=== PATIENT | male | born 1960 | race Caucasian/White ===

== ENCOUNTER → 2016-11-02 | Outpatient (CLI) | payer MEDICARE, MEDICAID ==
[~2016-11-02] MED LIST: ABILIFY2 MG PO; ALLEGRA 180MG180 MG PO; AMOXICILLIN875 MG PO; ASPIRIN E.C. 8181 MG PO; ATIVAN 0.50.5 MG/TAB PO; CLINDAMYCIN HC300 MG PO; COUMADIN 5MG5 MG/TAB PO; CRESTOR20 MG PO; FLOMAX 0.40.4 MG/CAP PO; LEXAPRO 5MG5 MG PO; LOPRESSOR100 MG PO; NAPROSYN375 MG PO; NAPROXEN 3375 MG/TAB PO; NITROSTAT0.4 MG/TAB SL; NORCO 325 MG-7.1 TAB PO; NORVASC 10MG10 MG PO; NORVASC 5MG5 MG/TAB PO; PLAVIX 75MG TAB75 MG PO; PRINIVIL20 MG PO; PRISTIQ 50 MG T50 MG PO; PRISTIQ100 MG PO; PROMETHAZINE V473 M2 PO; SILVADENE 400G400 GM TP; STOOL SOFTENER100 MG PO; TOPROL XL100 MG PO; TYLENOL 325MG325 M1 PO; TYLENOL EXTRA500 M1 PO; XANAX 1MG1 MG PO; ZESTRIL 20MG TA20 MG PO; ZESTRIL40 MG PO
== END ==
LOC: BHSO 13:46
DX: F31.81 Bipolar II disorder (principal)

== ENCOUNTER → 2016-11-15 | Outpatient (CLI) | payer MEDICARE, MEDICAID | LOC: COL.RAD 13:59 | DX: I71.9 Aortic aneurysm of unspecified site, without rupture (principal); Z53.09 Procedure and treatment not carried out because of other contraindication | CPT/HCPCS: Q9967 ==

== ENCOUNTER → 2016-11-16 | Outpatient (CLI) | payer MEDICARE, MEDICAID | LOC: COL.RAD 12:58 | DX: I71.4 Abdominal aortic aneurysm, without rupture (principal) | CPT/HCPCS: Q9967 ==

== ENCOUNTER 2016-12-26 13:14 | Emergency (ER) | payer MEDICARE, MEDICAID ==
[~2016-12-26] VITALS: Ht 188 cm; Wt 116.8 kg
[2016-12-26 13:47] LABS: BASO # 0.1 (0.0-0.2); BASO % 0.7 % (0.0-2.0); EOS # 0.3 (0.0-0.7); EOS % 3.8 % (0-4.0); GRAN # 4.9 (1.4-6.5); GRAN % 64.9 % (42.2-75.2); HEMATOCRIT 50.4 % (42.0-52.0); HEMOGLOBIN 16.8 g/dl (13.5-18.0); LYMPH # 1.6 (1.2-3.4); LYMPH % 21.2 % (20.0-51.0); MEAN CELL VOLUME 93 fl (80.0-100.0); MEAN CORPUSCULAR HEMOGLOBIN 31 pg (27.0-31.0); MEAN CORPUSCULAR HGB CONC 33 g/dl (33.0-37.0); MEAN PLATELET VOLUME 10.3 fl (7.4-10.4); MONO # 0.7 (0.1-0.6); MONO % 8.7 % (1.7-9.3); PLATELET COUNT 157 K/mm3 (130-400); REDCELL DISTRIBUTION WIDTH-CV 12.9 % (11.5-14.5); WHITE BLOOD COUNT 7.5 K/mm3 (4.8-10.8)
[2016-12-26 14:07] LABS: ANION GAP 10 mmol/L (7-16); BLOOD UREA NITROGEN 18 mg/dL (9-20); CALCIUM 9.3 mg/dL (8.4-10.2); CARBON DIOXIDE 24 mmol/L (22-30); CHLORIDE 104 mmol/L (98-107); CREATININE, serum 1.38 mg/dL (0.66-1.25); GLUCOSE 96 mg/dL (74-106); POTASSIUM 4.2 mmol/L (3.4-5.0); SODIUM 138 mmol/L (137-145)
[2016-12-26 14:08] LABS: ERYTHROCYTE SEDIMENTATION RATE 4 mm/hr (0-30)
[2016-12-26 14:10] LABS: C-REACTIVE PROTEIN < 0.5 mg/dL (0.0-0.9)
[2016-12-26 14:16] LABS: TROPONIN-I < 0.012 ng/mL (0.000-0.034)
[2016-12-26 14:45] LABS: INR 2.1 (0.8-3.0); PROTHROMBIN TIME 23.6 SECONDS (9.7-12.8)
[2016-12-26 14:54] VITALS: TEMP 98.1
[2016-12-26 17:47] VITALS: BP 125/65; PULSE 63
== END 2016-12-26 17:55 | disposition home or self-care (01) ==
LOC: COL.ER 13:14
PROVIDERS: Emergency Medicine
DX: I12.9 Hypertensive chronic kidney disease with stage 1 through stage 4 chronic kidney disease, or unspecified chronic kidney disease (principal); N18.9 Chronic kidney disease, unspecified; R42 Dizziness and giddiness; F32.9 Major depressive disorder, single episode, unspecified; F41.9 Anxiety disorder, unspecified; Z95.5 Presence of coronary angioplasty implant and graft; F17.210 Nicotine dependence, cigarettes, uncomplicated; Z79.02 Long term (current) use of antithrombotics/antiplatelets; Z86.718 Personal history of other venous thrombosis and embolism
CPT/HCPCS: J7030

== ENCOUNTER → 2017-05-05 | Outpatient (CLI) | payer MEDICARE, MEDICAID | LOC: BHSO 13:22 | DX: F06.32 Mood disorder due to known physiological condition with major depressive-like episode (principal) ==

== ENCOUNTER → 2017-11-01 | Outpatient (CLI) | payer MEDICARE, MEDICAID | LOC: BHSO 14:11 | DX: F31.81 Bipolar II disorder (principal) | CPT/HCPCS: G0463 ==

== ENCOUNTER → 2018-07-26 | Outpatient (CLI) | payer MEDICARE, MEDICAID | LOC: COL.RAD 16:41 | DX: S52.135A Nondisplaced fracture of neck of left radius, initial encounter for closed fracture (principal); D16.02 Benign neoplasm of scapula and long bones of left upper limb; Z87.81 Personal history of (healed) traumatic fracture ==

== ENCOUNTER → 2018-08-20 | Outpatient (CLI) | payer MEDICARE, MEDICAID | LOC: BHSO 11:11 | DX: F06.32 Mood disorder due to known physiological condition with major depressive-like episode (principal) | CPT/HCPCS: G0463 ==

== ENCOUNTER → 2018-09-11 | Outpatient (CLI) | payer MEDICARE, MEDICAID ==
[2018-09-11 14:46] LABS: BASO % 0.5 % (0.0-2.0); EOS # 0.2 (0.0-0.7); EOS % 3.1 % (0-4.0); GRAN # 3.2 (1.4-6.5); GRAN % 50.3 % (42.2-75.2); HEMATOCRIT 50.7 % (42.0-52.0); HEMOGLOBIN 16.5 g/dl (13.5-18.0); LYMPH # 2.3 (1.2-3.4); LYMPH % 35.6 % (20.0-51.0); MEAN CELL VOLUME 95 fl (80.0-100.0); MEAN CORPUSCULAR HEMOGLOBIN 31 pg (27.0-31.0); MEAN CORPUSCULAR HGB CONC 33 g/dl (33.0-37.0); MEAN PLATELET VOLUME 10.2 fl (7.4-10.4); MONO # 0.6 (0.1-0.6); MONO % 9.7 % (1.7-9.3); PLATELET COUNT 176 K/mm3 (130-400); RED BLOOD COUNT 5.36 M/mm3 (4.20-5.60); REDCELL DISTRIBUTION WIDTH-CV 13.3 % (11.5-14.5)
[2018-09-11 14:54] LABS: ALANINE AMINOTRANSFERASE 20 U/L (21-72); ALKALINE PHOSPHATASE 76 U/L (50-136); ANION GAP 7 mmol/L (7-16); AST,SGOT 29 U/L (15-37); BILIRUBIN,TOTAL 0.3 mg/dL (0.0-1.0); BLOOD UREA NITROGEN 20 mg/dL (9-20); CARBON DIOXIDE 25 mmol/L (22-30); CHLORIDE 106 mmol/L (98-107); CREATININE, serum 1.31 mg/dL (0.66-1.25); GLUCOSE 98 mg/dL (74-106); POTASSIUM 4.9 mmol/L (3.4-5.0); SODIUM 139 mmol/L (137-145); TOTAL PROTEIN 7.4 gm/dL (6.4-8.2)
[2018-09-11 15:11] LABS: TROPONIN-I < 0.012 ng/mL (0.000-0.035)
== END ==
LOC: COL.LAB 13:59
PROVIDERS: Nurse Practitioner Family
DX: R42 Dizziness and giddiness (principal)

== ENCOUNTER 2018-09-26 11:29 | Day surgery (SDC) | payer MEDICARE, MEDICAID ==
[2018-09-26] VITALS (9 sets, daily range): BP systolic 110–138; BP diastolic 70–86; PULSE 68–78; TEMP 98.8
[~2018-09-26] VITALS: Ht 188.1 cm; Wt 129.9 kg
[2018-09-26 12:24] LABS: HEMATOCRIT 48.6 % (42.0-52.0); HEMOGLOBIN 15.6 g/dl (13.5-18.0); MEAN CELL VOLUME 96 fl (80.0-100.0); MEAN CORPUSCULAR HEMOGLOBIN 31 pg (27.0-31.0); MEAN CORPUSCULAR HGB CONC 32 g/dl (33.0-37.0); MEAN PLATELET VOLUME 10.4 fl (7.4-10.4); PLATELET COUNT 150 K/mm3 (130-400); RED BLOOD COUNT 5.08 M/mm3 (4.20-5.60); REDCELL DISTRIBUTION WIDTH-CV 13.3 % (11.5-14.5)
[2018-09-26] MEDS ORDERED: LIPITOR 80MG80 MG PO (12:29)
[2018-09-26 12:32] LABS: INR 1.3 (0.8-3.0); PROTHROMBIN TIME 14.8 SECONDS (9.7-12.8)
[2018-09-26 12:36] LABS: CALCIUM 8.8 mg/dL (8.4-10.2); POTASSIUM 4.5 mmol/L (3.4-5.0)
[2018-09-26 12:46] LABS: CREATININE, serum 1.3 mg/dL (0.66-1.25)
[2018-09-26] MEDS ORDERED: CORICIDIN HBP1 EACH PO (13:04)
[2018-09-26] MEDS ORDERED: FLONASEALLERGY NS (13:05)
--- NOTE | 2018-09-26 14:58 | NUR ---
ALL SEDATION MEDICATIONS GIVEN WITH VERBAL ORDER FROM MD. SEE MERGE FOR ADMIN TIMES. SEE MERGE FOR RASS AND MODERATE SEDATION ASSESSMENTS DURING AND POST PROCEDURE.
--- NOTE | 2018-09-26 15:25 | NUR ---
Back from Digital Content Marketing Manager. Alert and oriented, denies pain at this time. Right TR band with 15 cc air CD&I. Good pulses and cap refill < 3 secs noted. VSS
--- NOTE | 2018-09-26 16:19 | NUR ---
chemical tank worker filed an APS report due to body odor and feces all over patient's body and clothing. APS # [id number]. Patient had an outpatient procedure and discharged home today.
--- NOTE | 2018-09-26 17:51 | NUR ---
Deflated TR band completely with 15 cc air out. No bleeding noted, pressure dressing placed. Ambulated with pt , steady gait noted. INT discontinued intact. Discharge intsruction explained twice and outlined with highlighter in discharge paperwork.
--- NOTE | 2018-09-26 18:12 | NUR ---
Transferred to private car driven by brother in law Carlos Biggs
== END 2018-09-26 18:13 | disposition home or self-care (01) ==
LOC: COL.CAR 11:29
PROVIDERS: Internal Medicine Cardiovascular Disease
DX: I25.10 Atherosclerotic heart disease of native coronary artery without angina pectoris (principal); I10 Essential (primary) hypertension; Z95.5 Presence of coronary angioplasty implant and graft; E78.5 Hyperlipidemia, unspecified; I25.2 Old myocardial infarction; Z79.01 Long term (current) use of anticoagulants; Z79.02 Long term (current) use of antithrombotics/antiplatelets; N40.0 Benign prostatic hyperplasia without lower urinary tract symptoms; F17.200 Nicotine dependence, unspecified, uncomplicated; Z87.820 Personal history of traumatic brain injury; Z79.899 Other long term (current) drug therapy; Z79.82 Long term (current) use of aspirin
CPT/HCPCS: J1644; J2250; J3010; Q9967

== ENCOUNTER → 2019-02-07 | Outpatient (CLI) | payer MEDICARE, MEDICAID ==
[~2019-02-07] MED LIST changes: +CORICIDIN HBP1 EACH PO; +FLONASEALLERGY NS; +LIPITOR 80MG80 MG PO
== END ==
LOC: COL.VAS 12:34
DX: M79.89 Other specified soft tissue disorders (principal)

== ENCOUNTER → 2019-02-20 | Outpatient (CLI) | payer MEDICARE, MEDICAID | LOC: BHSO 15:38 | DX: F06.32 Mood disorder due to known physiological condition with major depressive-like episode (principal) | CPT/HCPCS: G0463 ==

== ENCOUNTER → 2019-02-26 | Outpatient (CLI) | payer MEDICARE, MEDICAID | LOC: COL.VAS 09:59 | DX: R60.0 Localized edema (principal) ==

== ENCOUNTER → 2019-04-09 | Outpatient (CLI) | payer MEDICARE, MEDICAID | LOC: DIA.ED 09:20 | DX: E74.39 Other disorders of intestinal carbohydrate absorption (principal); E78.5 Hyperlipidemia, unspecified; I10 Essential (primary) hypertension; E66.9 Obesity, unspecified | CPT/HCPCS: G0108 ==

== ENCOUNTER → 2019-04-16 | Outpatient (CLI) | payer MEDICARE, MEDICAID | LOC: MC.RAD 13:57 | DX: Z12.31 Encounter for screening mammogram for malignant neoplasm of breast (principal); N64.4 Mastodynia | CPT/HCPCS: G0279 ==

== ENCOUNTER → 2019-04-23 | Outpatient (CLI) | payer MEDICARE, MEDICAID | LOC: BHSO 14:58 | DX: F06.32 Mood disorder due to known physiological condition with major depressive-like episode (principal) | CPT/HCPCS: G0463 ==

== ENCOUNTER → 2019-05-01 | Outpatient (CLI) | payer MEDICARE, MEDICAID | LOC: DIA.ED 10:21 | DX: E74.39 Other disorders of intestinal carbohydrate absorption (principal); E78.5 Hyperlipidemia, unspecified; I10 Essential (primary) hypertension; E66.9 Obesity, unspecified | CPT/HCPCS: G0108 ==

== ENCOUNTER → 2020-01-24 | Outpatient (CLI) | payer MEDICARE, MEDICAID | LOC: COL.RAD 16:44 | DX: K76.0 Fatty (change of) liver, not elsewhere classified (principal); M54.5 Low back pain; R31.9 Hematuria, unspecified; I71.4 Abdominal aortic aneurysm, without rupture ==

== ENCOUNTER → 2020-04-09 | Outpatient (CLI) | payer MEDICARE, MEDICAID ==
[~2020-04-09] MED LIST changes: +GLUCOPHAGE500 MG/TAB PO; +LASIX 20MG TABL20 MG PO; +NORCO 325 MG-51 TAB PO; +OMEGA-3 FISH1000 MG PO; +PROTONIX 40MG T40 MG PO; +TYLENOL 500MG500 MG PO; +ULTRAM 50MG TAB50 MG PO; +WELLBUTRIN XL300 M1 PO
== END ==
LOC: BHSO 14:15
DX: F06.32 Mood disorder due to known physiological condition with major depressive-like episode (principal)
CPT/HCPCS: G0463

== ENCOUNTER 2020-05-22 08:15 | Day surgery (SDC) | payer MEDICARE, MEDICAID ==
[~2020-05-22] VITALS: Ht 188 cm; Wt 155.2 kg
[~2020-05-22 08:15] MED LIST changes: -GLUCOPHAGE500 MG/TAB PO; -LASIX 20MG TABL20 MG PO; -NORCO 325 MG-51 TAB PO; -OMEGA-3 FISH1000 MG PO; -PROTONIX 40MG T40 MG PO; -TYLENOL 500MG500 MG PO; -ULTRAM 50MG TAB50 MG PO; -WELLBUTRIN XL300 M1 PO
[2020-05-22 09:25] VITALS: BP 157/83; PULSE 88; TEMP 99.2
[2020-05-22] MEDS ORDERED: CRESTOR20 MG PO (09:45)
[2020-05-22] MEDS ORDERED: COUMADIN 5MG5 MG/TAB PO (09:49)
[2020-05-22] MEDS ORDERED: TYLENOL 500MG500 MG PO (09:50)
[2020-05-22] MEDS ORDERED: ULTRAM 50MG TAB50 MG PO (09:51)
[2020-05-22] MEDS ORDERED: GLUCOPHAGE500 MG/TAB PO (09:52)
[2020-05-22] MEDS ORDERED: OMEGA-3 FISH1000 MG PO (09:53)
[2020-05-22] MEDS ORDERED: LASIX 20MG TABL20 MG PO (09:53)
[2020-05-22] MEDS ORDERED: WELLBUTRIN XL300 M1 PO (10:03)
[2020-05-22] MEDS ORDERED: PROTONIX 40MG T40 MG PO (10:05)
[2020-05-22] MEDS ORDERED: FLOMAX 0.40.4 MG/CAP PO (10:06)
[2020-05-22] MEDS ORDERED: PRISTIQ100 MG PO (10:07)
--- NOTE | 2020-05-22 10:24 | NUR ---
DR RED OFFICE CALLED CONCERNING HIS MEDS. NURSE STATED FULLY AWARE OF PATIENTS POOR MEDICATION REGIMEN.
[2020-05-22 11:30] VITALS: BP 109/60; PULSE 74; TEMP 97.6
--- NOTE | 2020-05-22 11:30 | NUR ---
TO RM 6 PER CART FROM PACU. ALERT ORIENTED X3, TALKING TO STAFF. REDDY CATHETER IN PLACE WITH CLEAR URINE. PATIENT SIPPING ON WATER. HAD TO REPEAT MYSELF MANY TIMES CONCERNING CATHETER AND HOW IT WORKS. PATIENT CONTINUES TO C/O BACK AND NECK PAIN.
[2020-05-22 11:45] VITALS: BP 117/59; PULSE 73
--- NOTE | 2020-05-22 11:45 | NUR ---
PATIENT SLEEPING QUIETLY
[2020-05-22 12:30] VITALS: BP 102/53; PULSE 72
--- NOTE | 2020-05-22 12:30 | NUR ---
LITTLE MORE AWAKE AND ASKING SAME QUESTIONS ABOUT THE REDDY CATHETER.
--- NOTE | 2020-05-22 12:40 | NUR ---
RECEIVED SPRITE AND MUFFIN. PATIENT MOANS WITH EVERY MOVE. CONTINUES TO C/O BACK NECK PAIN.
[2020-05-22 12:55] VITALS: BP 110/72; PULSE 74
--- NOTE | 2020-05-22 12:55 | NUR ---
ATE 100% AND TOLERATED WELL. PATIENT ASKING FOR PAIN MED FOR NECK, BACK AND PENIS.
[2020-05-22] MEDS ORDERED: NORCO 325 MG-51 TAB PO (13:02)
--- NOTE | 2020-05-22 13:35 | NUR ---
RECEIVED FENTANYL 25MG IV
--- NOTE | 2020-05-22 14:45 | NUR ---
RECEIVED DISCHARGE INSTRUCTIONS. I REPEATED MYSELF SEVERAL TIMES WITH INSTRUCGIONS. PATIENT SAT ON SIDE OF BED AND WAS ABLE TO SHOW RETURN DEMONSTRATION OF HOW TO EMPTY HIS REDDY BAG. I DID NOT GIVE PATIENT LEG BAG, DUE TO PATIENT LIMITED MEMORY RECALL. DRESSED PATIENT HE HAS LIMITED RANGE OF MOTION.
--- NOTE | 2020-05-22 15:15 | NUR ---
DISCHARGED PER WC BY NURSING STAFF TO PRIVATE CAR IN CARE OF BROTHER IN LAW
== END 2020-05-22 15:20 | disposition home or self-care (01) ==
LOC: SDCO 08:15
DX: N35.912 Unspecified bulbous urethral stricture, male (principal); N35.914 Unspecified anterior urethral stricture, male; R31.0 Gross hematuria; F41.9 Anxiety disorder, unspecified; F32.9 Major depressive disorder, single episode, unspecified; Z86.718 Personal history of other venous thrombosis and embolism; E78.5 Hyperlipidemia, unspecified; I10 Essential (primary) hypertension; I25.2 Old myocardial infarction; I95.9 Hypotension, unspecified; Z79.84 Long term (current) use of oral hypoglycemic drugs; Z88.8 Allergy status to other drugs, medicaments and biological substances; F17.210 Nicotine dependence, cigarettes, uncomplicated; G47.33 Obstructive sleep apnea (adult) (pediatric); K21.9 Gastro-esophageal reflux disease without esophagitis; Z95.5 Presence of coronary angioplasty implant and graft
CPT/HCPCS: C1769; C1894; J0330; J0690; J2704; J3010

== ENCOUNTER → 2020-07-15 | Outpatient (CLI) | payer MEDICARE, MEDICAID ==
[~2020-07-15] MED LIST changes: +GLUCOPHAGE500 MG/TAB PO; +LASIX 20MG TABL20 MG PO; +NORCO 325 MG-51 TAB PO; +OMEGA-3 FISH1000 MG PO; +PROTONIX 40MG T40 MG PO; +TYLENOL 500MG500 MG PO; +ULTRAM 50MG TAB50 MG PO; +WELLBUTRIN XL300 M1 PO
== END ==
LOC: COL.RAD
DX: R19.7 Diarrhea, unspecified (principal)

== ENCOUNTER → 2020-08-26 | Outpatient (CLI) | payer MEDICARE, MEDICAID | LOC: COL.RAD 07:53 | DX: Z01.812 Encounter for preprocedural laboratory examination (principal); I71.4 Abdominal aortic aneurysm, without rupture ==

== ENCOUNTER → 2021-01-18 | Outpatient (CLI) | payer MEDICARE, MEDICAID | LOC: COL.RAD 12:25 | DX: M17.11 Unilateral primary osteoarthritis, right knee (principal) ==

== ENCOUNTER 2021-04-05 13:15 | Outpatient (RCR) | payer MEDICARE, MEDICAID | END 2021-04-13 | disposition home or self-care (01) | LOC: WSST | DX: R41.841 Cognitive communication deficit (principal); F01.50 Vascular dementia, unspecified severity, without behavioral disturbance, psychotic disturbance, mood disturbance, and anxiety ==

== ENCOUNTER 2021-05-21 13:00 | Outpatient (RCR) | payer MEDICARE, MEDICAID | END 2021-07-02 | disposition home or self-care (01) | LOC: WSPT | DX: M25.561 Pain in right knee (principal) | CPT/HCPCS: G0283-GP ==

== ENCOUNTER 2021-06-30 14:45 | Outpatient (RCR) | payer MEDICARE, MEDICAID | END 2021-07-02 | disposition home or self-care (01) | LOC: WSST | DX: R41.841 Cognitive communication deficit (principal); F01.50 Vascular dementia, unspecified severity, without behavioral disturbance, psychotic disturbance, mood disturbance, and anxiety; Z87.820 Personal history of traumatic brain injury ==

== ENCOUNTER 2021-07-29 14:15 | Outpatient (RCR) | payer MEDICARE, MEDICAID | END 2021-08-02 | disposition home or self-care (01) | LOC: WSST | DX: R41.81 Age-related cognitive decline (principal); F01.50 Vascular dementia, unspecified severity, without behavioral disturbance, psychotic disturbance, mood disturbance, and anxiety ==

== ENCOUNTER → 2021-08-30 | Outpatient (RCR) | payer MEDICARE, MEDICAID | END | disposition home or self-care (01) | LOC: WSST | DX: R41.841 Cognitive communication deficit (principal); F01.50 Vascular dementia, unspecified severity, without behavioral disturbance, psychotic disturbance, mood disturbance, and anxiety ==

== ENCOUNTER 2021-09-27 14:45 | Outpatient (RCR) | payer MEDICARE, MEDICAID | END 2021-09-30 | disposition home or self-care (01) | LOC: WSST | DX: R41.841 Cognitive communication deficit (principal); F01.50 Vascular dementia, unspecified severity, without behavioral disturbance, psychotic disturbance, mood disturbance, and anxiety ==

== ENCOUNTER 2021-10-25 14:45 | Outpatient (RCR) | payer MEDICARE, MEDICAID | END 2021-10-30 | disposition home or self-care (01) | LOC: WSST | DX: R41.841 Cognitive communication deficit (principal); F01.50 Vascular dementia, unspecified severity, without behavioral disturbance, psychotic disturbance, mood disturbance, and anxiety ==

== ENCOUNTER 2021-11-22 14:45 | Outpatient (RCR) | payer MEDICARE, MEDICAID | END 2021-11-30 | disposition home or self-care (01) | LOC: WSST | DX: R41.841 Cognitive communication deficit (principal); F01.50 Vascular dementia, unspecified severity, without behavioral disturbance, psychotic disturbance, mood disturbance, and anxiety ==

== ENCOUNTER 2021-12-27 14:45 | Outpatient (RCR) | payer MEDICARE, MEDICAID | END 2021-12-30 | disposition home or self-care (01) | LOC: WSST | DX: R41.841 Cognitive communication deficit (principal); F01.50 Vascular dementia, unspecified severity, without behavioral disturbance, psychotic disturbance, mood disturbance, and anxiety ==

== ENCOUNTER → 2022-01-07 | Outpatient (CLI) | payer MEDICARE, MEDICAID | LOC: MC.RAD 13:59 | DX: N62 Hypertrophy of breast (principal) ==

== ENCOUNTER 2022-01-24 14:45 | Outpatient (RCR) | payer MEDICARE, MEDICAID | END 2022-01-30 | disposition home or self-care (01) | LOC: WSST | DX: R41.841 Cognitive communication deficit (principal) ==

== ENCOUNTER 2022-02-28 14:45 | Outpatient (RCR) | payer MEDICARE, MEDICAID | END 2022-03-02 | disposition home or self-care (01) | LOC: WSST | DX: R41.841 Cognitive communication deficit (principal); Z87.820 Personal history of traumatic brain injury; F01.50 Vascular dementia, unspecified severity, without behavioral disturbance, psychotic disturbance, mood disturbance, and anxiety ==

== ENCOUNTER 2022-05-11 16:38 | Emergency (ER) | payer MEDICARE, MEDICAID ==
[~2022-05-11] VITALS: Ht 188 cm; Wt 147.3 kg
[2022-05-11 16:50] VITALS: TEMP 97.1
[2022-05-11 17:56] LABS: BASO # 0.1 K/mm3 (0.0-0.2); BASO % 0.8 % (0.0-2.0); EOS # 0.4 K/mm3 (0.0-0.7); GRAN # 3.9 K/mm3 (1.4-6.5); GRAN % 54.7 % (42.2-75.2); HEMATOCRIT 50.5 % (42.0-52.0); HEMOGLOBIN 16.8 g/dl (13.5-18.0); LYMPH # 2.1 K/mm3 (1.2-3.4); LYMPH % 29.8 % (20.0-51.0); MEAN CELL VOLUME 93 fl (80.0-100.0); MEAN CORPUSCULAR HEMOGLOBIN 31 pg (27-31); MEAN CORPUSCULAR HGB CONC 33 g/dl (33.0-37.0); MEAN PLATELET VOLUME 10.4 fl (7.4-10.4); MONO # 0.6 K/mm3 (0.1-0.6); MONO % 8.4 % (1.7-9.3); PLATELET COUNT 159 K/mm3 (130-400); RED BLOOD COUNT 5.41 M/mm3 (4.20-5.60); REDCELL DISTRIBUTION WIDTH-CV 13.3 % (11.5-14.5)
[2022-05-11 18:04] LABS: INR 2.4 (0.8-3.0)
[2022-05-11 18:12] LABS: ALBUMIN 3.7 gm/dL (3.4-4.8); BILIRUBIN,TOTAL 0.4 mg/dL (0.2-1.2); CREATININE, serum 1.48 mg/dL (0.72-1.25); POTASSIUM 4.9 mmol/L (3.5-4.5); TOTAL PROTEIN 7.2 gm/dL (6.2-8.1)
[2022-05-11 18:18] LABS: TROPONIN-I 0.01 ng/mL (0.00-0.033)
[2022-05-11 18:51] LABS: COLLECTION METHOD CLEAN CATCH
[2022-05-11 18:59] LABS: MUCOUS Present (NOT PRESENT); PH 5.5 (5-8); SQUAMOUS EPITHELIAL 0-2 /hpf (0-10); URINE APPEARANCE Hazy (CLEAR/HAZY); URINE BACTERIA None Seen /hpf (NONE SEEN); URINE BLOOD Negative (NEGATIVE); URINE COLOR Yellow (YELLOW); URINE GLUCOSE Negative (NEGATIVE); URINE KETONE Negative (NEGATIVE); URINE NITRATE Negative (NEGATIVE); URINE PROTEIN(semi-quant) Negative (NEGATIVE); URINE RBC 0-2 /hpf (0-2); URINE UROBILINOGEN 0.2 (NEGATIVE)
[2022-05-11 19:07] LABS: TRICYCLIC ANTIDEPRESS URINE NEGATIVE
[2022-05-11 20:00] VITALS: BP 119/68; PULSE 84
== END 2022-05-11 20:00 | disposition home or self-care (01) ==
LOC: COL.ER 16:38
PROVIDERS: Physician Assistant
DX: R53.1 Weakness (principal); E66.9 Obesity, unspecified; R79.89 Other specified abnormal findings of blood chemistry; Z68.41 Body mass index [BMI] 40.0-44.9, adult; Z95.5 Presence of coronary angioplasty implant and graft; Z79.01 Long term (current) use of anticoagulants; W18.30XA Fall on same level, unspecified, initial encounter; Y93.01 Activity, walking, marching and hiking
CPT/HCPCS: J7030

== ENCOUNTER 2022-08-01 14:45 | Outpatient (RCR) | payer MEDICARE, MEDICAID | END 2022-08-02 | disposition home or self-care (01) | LOC: WSST | DX: R41.841 Cognitive communication deficit (principal) ==

== ENCOUNTER 2022-08-15 14:45 | Outpatient (RCR) | payer MEDICARE, MEDICAID | END 2022-08-30 | disposition home or self-care (01) | LOC: WSST | DX: R41.841 Cognitive communication deficit (principal); F01.50 Vascular dementia, unspecified severity, without behavioral disturbance, psychotic disturbance, mood disturbance, and anxiety ==

== ENCOUNTER 2022-09-26 14:45 | Outpatient (RCR) | payer MEDICARE, MEDICAID | END 2022-09-30 | disposition home or self-care (01) | LOC: WSST | DX: R41.841 Cognitive communication deficit (principal); F01.50 Vascular dementia, unspecified severity, without behavioral disturbance, psychotic disturbance, mood disturbance, and anxiety ==

== ENCOUNTER 2022-10-24 14:45 | Outpatient (RCR) | payer MEDICARE, MEDICAID | END 2022-10-30 | disposition home or self-care (01) | LOC: WSST | DX: R41.841 Cognitive communication deficit (principal) ==

== ENCOUNTER 2022-11-21 14:45 | Outpatient (RCR) | payer MEDICARE, MEDICAID | END 2022-11-30 | disposition home or self-care (01) | LOC: WSST | DX: R41.841 Cognitive communication deficit (principal) ==

== ENCOUNTER 2023-04-10 14:45 | Outpatient (RCR) | payer MEDICARE, MEDICAID | END 2023-04-12 12:20 | disposition home or self-care (01) | LOC: WSST 14:45 | DX: R41.841 Cognitive communication deficit (principal) ==

== ENCOUNTER → 2023-04-12 | Outpatient (CLI) | payer MEDICARE, MEDICAID | LOC: COL.RAD 14:39 | DX: M25.552 Pain in left hip (principal); M25.561 Pain in right knee ==

== ENCOUNTER → 2024-01-10 | Outpatient (CLI) | payer MEDICARE, MEDICAID ==
[~2024-01-10] MED LIST changes: +Iohexol 300 - 100 ML VIAL IV ONE; +NS 100 ML IV SCH
[2024-01-10 14:39] LABS: HEMOGLOBIN 16.4 g/dl (13.5-18.0); MEAN CELL VOLUME 93 fl (80.0-100.0); MEAN CORPUSCULAR HEMOGLOBIN 30 pg (27-31); MEAN CORPUSCULAR HGB CONC 32 g/dl (33.0-37.0); MEAN PLATELET VOLUME 10.9 fl (7.4-10.4); PLATELET COUNT 127 K/mm3 (130-400); REDCELL DISTRIBUTION WIDTH-CV 13.2 % (11.5-14.5)
[2024-01-10 14:41] LABS: BASO # 0.1 K/mm3 (0.0-0.2); BASO % 0.7 % (0.0-2.0); EOS % 4.4 % (0.0-4.0)
[2024-01-10 14:48] LABS: ALBUMIN 3.9 g/dL (3.4-4.8); BILIRUBIN,TOTAL 0.6 mg/dL (0.2-1.2); CALCIUM 9.6 mg/dL (8.4-10.2); CREATININE, serum 1.32 mg/dL (0.72-1.25); POTASSIUM 4.8 mEq/L (3.5-4.5); TOTAL PROTEIN 7.1 g/dl (6.2-8.1)
[2024-01-10 15:09] LABS: BAND 4 % (0-10); EOSINOPHIL 4 % (0-4); LYMPHOCYTE 29 % (20.0-51.0); NEUTROPHILS 55 % (42.0-75.2); PLATELET ESTIMATE NORMAL (NORMAL)
== END ==
LOC: COL.RAD 13:43
PROVIDERS: Student in an Organized Health Care Education/Training Program
DX: K76.0 Fatty (change of) liver, not elsewhere classified (principal); K57.30 Diverticulosis of large intestine without perforation or abscess without bleeding; I77.811 Abdominal aortic ectasia
CPT/HCPCS: Q9967

== ENCOUNTER → 2024-02-12 | Outpatient (CLI) | payer MEDICARE, MEDICAID ==
[~2024-02-12] MED LIST changes: -Iohexol 300 - 100 ML VIAL IV ONE; -NS 100 ML IV SCH
[2024-02-12 14:31] LABS: COLLECTION METHOD CLEAN CATCH
[2024-02-12 14:42] LABS: BASO # 0.1 K/mm3 (0.0-0.2); BASO % 0.8 % (0.0-2.0); EOS # 0.3 K/mm3 (0.0-0.7); EOS % 2.8 % (0.0-4.0); GRAN # 5.6 K/mm3 (1.4-6.5); GRAN % 60.8 % (42.2-75.2); HEMOGLOBIN 17.8 g/dl (13.5-18.0); LYMPH # 2.4 K/mm3 (1.2-3.4); LYMPH % 26.6 % (20.0-51.0); MEAN CELL VOLUME 94 fl (80.0-100.0); MEAN CORPUSCULAR HEMOGLOBIN 30 pg (27-31); MEAN CORPUSCULAR HGB CONC 32 g/dl (33.0-37.0); MEAN PLATELET VOLUME 10.9 fl (7.4-10.4); MONO # 0.8 K/mm3 (0.1-0.6); MONO % 8.6 % (1.7-9.3); PLATELET COUNT 159 K/mm3 (130-400); RED BLOOD COUNT 5.87 M/mm3 (4.20-5.60); REDCELL DISTRIBUTION WIDTH-CV 13.2 % (11.5-14.5)
[2024-02-12 15:03] LABS: BILIRUBIN,TOTAL 0.8 mg/dL (0.2-1.2); CALCIUM 9.7 mg/dL (8.4-10.2); CHOLESTEROL RISK RATIO 6.3; CREATININE, serum 1.52 mg/dL (0.72-1.25); POTASSIUM 5.6 mEq/L (3.5-4.5); TOTAL PROTEIN 7.6 g/dl (6.2-8.1)
[2024-02-12 15:32] LABS: PH 5.5 (5.0-8.5); URINE APPEARANCE CLEAR (CLEAR/HAZY); URINE COLOR YELLOW (YELLOW)
[2024-02-12 15:33] LABS: URINE GLUCOSE NEGATIVE (NEGATIVE); URINE KETONE Negative (NEGATIVE); URINE PROTEIN(semi-quant) TRACE (BEGATIVE); URINE UROBILINOGEN 0.2 E.U/dL (0.2-1.0)
[2024-02-12 15:34] LABS: URINE BLOOD Negative (NEGATIVE); URINE NITRATE NEGATIVE (NEGATIVE)
[2024-02-12 15:35] LABS: URINE BACTERIA MODERATE /hpf (NONE SEEN); URINE RBC 0-2 /hpf (0-2)
[2024-02-12 15:40] LABS: THYROID STIMULATING HORMONE 1.571 uIU/mL (0.350-4.940)
== END ==
LOC: COL.LAB 13:11
PROVIDERS: Internal Medicine
DX: I12.9 Hypertensive chronic kidney disease with stage 1 through stage 4 chronic kidney disease, or unspecified chronic kidney disease (principal); N18.31 Chronic kidney disease, stage 3a; E11.59 Type 2 diabetes mellitus with other circulatory complications; I25.10 Atherosclerotic heart disease of native coronary artery without angina pectoris; E78.00 Pure hypercholesterolemia, unspecified; N40.1 Benign prostatic hyperplasia with lower urinary tract symptoms

== ENCOUNTER → 2024-03-08 | Outpatient (CLI) | payer MEDICARE, MEDICAID | LOC: COL.RAD 14:49 | DX: N50.811 Right testicular pain (principal); I80.3 Phlebitis and thrombophlebitis of lower extremities, unspecified ==

== ENCOUNTER → 2024-04-16 | Outpatient (CLI) | payer MEDICARE, MEDICAID | LOC: COL.RAD 15:22 | DX: M47.816 Spondylosis without myelopathy or radiculopathy, lumbar region (principal); M51.369 Other intervertebral disc degeneration, lumbar region without mention of lumbar back pain or lower extremity pain; M48.061 Spinal stenosis, lumbar region without neurogenic claudication; I71.9 Aortic aneurysm of unspecified site, without rupture ==